=== PATIENT | female | born 1970 | race Caucasian/White ===

== ENCOUNTER → 2022-01-30 | Outpatient (CLI) | payer BC ==
[2022-01-30 08:40] LABS: HEMOGLOBIN 12.7 gm/dl (12.3-15.3); RED BLOOD COUNT 4.29 M/UL (4.00-5.10); WHITE BLOOD COUNT 5.8 K/UL (4.5-11.0)
[2022-01-30 09:03] LABS: BUN/CREATININE RATIO 17 (0-10)
== END ==
LOC: LAB 07:59
PROVIDERS: Nurse Practitioner Family
DX: E78.5 Hyperlipidemia, unspecified (principal); E53.8 Deficiency of other specified B group vitamins; R79.89 Other specified abnormal findings of blood chemistry; Z87.09 Personal history of other diseases of the respiratory system
CPT/HCPCS: 36415; 80053; 80061; 82607; 84439; 84443; 85025

== ENCOUNTER 2022-04-29 23:34 | Emergency (ER) | payer BC | END 2022-04-30 03:06 | disposition home or self-care (01) | LOC: ER1 23:34 | DX: M79.605 Pain in left leg (principal); Z79.82 Long term (current) use of aspirin | CPT/HCPCS: 99283; J1650 ==

== ENCOUNTER → 2022-04-30 | Outpatient (CLI) | payer BC | LOC: LAB 08:59 | DX: M79.605 Pain in left leg (principal) | CPT/HCPCS: 93971 ==

== ENCOUNTER 2022-05-04 19:28 | Emergency (ER) | payer BC | END 2022-05-04 19:35 | disposition left against medical advice (07) | LOC: ER1 19:28 | DX: Z53.21 Procedure and treatment not carried out due to patient leaving prior to being seen by health care provider (principal) ==